=== PATIENT | female | born 1995 | race Caucasian/White ===

== ENCOUNTER → 2019-09-08 09:25 | Outpatient (CLI) | payer OTHER ==
[~2019-09-08 09:25] MED LIST: ZOFRAN ODT4 MG/UDTAB PO
== END | disposition home or self-care (01) ==
LOC: D.LDO 09:25
PROVIDERS: ATTEND Student in an Organized Health Care Education/Training Program
DX: O26.90 Pregnancy related conditions, unspecified, unspecified trimester (principal); Z3A.00 Weeks of gestation of pregnancy not specified

== ENCOUNTER → 2019-09-15 08:26 | Outpatient (CLI) | payer OTHER | END | disposition home or self-care (01) | LOC: D.LDO 08:26 | PROVIDERS: ATTEND Student in an Organized Health Care Education/Training Program | DX: O26.899 Other specified pregnancy related conditions, unspecified trimester (principal); T70.4XXA Effects of high-pressure fluids, initial encounter ==

== ENCOUNTER → 2019-09-22 08:49 | Outpatient (CLI) | payer OTHER | END | disposition home or self-care (01) | LOC: D.LDO 08:49 | PROVIDERS: ATTEND Student in an Organized Health Care Education/Training Program | DX: Z34.90 Encounter for supervision of normal pregnancy, unspecified, unspecified trimester (principal); Z3A.00 Weeks of gestation of pregnancy not specified; T70.4XXA Effects of high-pressure fluids, initial encounter ==

== ENCOUNTER → 2019-11-25 07:23 | Outpatient (CLI) | payer SELFPAY ==
[2019-11-25 08:40] LABS: APPEARANCE CLOUDY (CLEAR); BILIRUBIN NEGATIVE (NEGATIVE); COLOR YELLOW (YELLOW); GLUCOSE NEGATIVE (NEGATIVE); KETONE NEGATIVE (NEGATIVE); NITRITE NEGATIVE (NEGATIVE); PROTEIN NEGATIVE (NEGATIVE); UROBILINOGEN NORMAL (NORMAL)
[2019-11-25 08:41] LABS: BACTERIA MANY /hpf (NEGATIVE); RED CELLS - URINE 0-5 /hpf (0-5)
== END | disposition home or self-care (01) ==
LOC: D.LDO 07:23
PROVIDERS: ATTEND Student in an Organized Health Care Education/Training Program
DX: O62.9 Abnormality of forces of labor, unspecified (principal); Z3A.00 Weeks of gestation of pregnancy not specified